=== PATIENT | female | born 1975 | race Caucasian/White ===

== ENCOUNTER 2019-01-27 08:41 | Emergency (ER) | payer MEDICARE, MEDICAID ==
[~2019-01-27] VITALS: Ht 157.4 cm; Wt 47.6 kg
[2019-01-27 09:35] LABS: BASO % 0.3 % (0.0-1.0); EOS # 0.1 10*3/uL (0.0-0.4); EOS % 1.1 % (1.0-4.0); HEMATOCRIT 42.2 % (37.0-47.0); LYMPH # 3.5 10*3/uL (1.3-4.4); LYMPH % 30.9 % (27.0-41.0); MEAN CELL VOLUME 105.5 fl (81.0-99.0); MEAN CORPUSCULAR HGB CONC 33.2 g/dl (33.0-37.0); MEAN PLATELET VOLUME 10.8 fl (9.6-12.3); MONO # 0.8 10*3/uL (0.1-1.0); MONO % 7.3 % (3.0-9.0); NEUT # 6.8 10*3/uL (2.3-7.9); NEUT % 60.1 % (47.0-73.0); PLATELET COUNT AUTOMATED 277 10*3/uL (130-400); RED CELL DISTRI WIDTH 14.8 % (0-14.5); WHITE BLOOD COUNT 11.3 10*3/uL (4.8-10.8)
[2019-01-27 09:49] LABS: ALKALINE PHOSPHATASE 96 U/L (45-117); BUN 5 mg/dl (7-24); CHLORIDE 107 mmol/L (98-107); CREATININE 0.76 mg/dL (0.55-1.02); POTASSIUM 3.2 mmol/L (3.5-5.1); SGOT/AST 13 IU/L (3-35); SGPT/ALT 20 U/L (12-78); SODIUM 142 mmol/L (136-145); TOTAL PROTEIN 6.2 gm/dL (6.4-8.2)
[2019-01-27] MEDS ORDERED: AMOXICILLIN500 M2 PO (10:48)
[2019-01-27] MEDS ORDERED: DIFLUCAN150 MG PO (10:48)
== END 2019-01-27 10:56 | disposition home or self-care (01) ==
LOC: ED 08:41
PROVIDERS: Hospitalist
DX: J32.9 Chronic sinusitis, unspecified (principal); F17.200 Nicotine dependence, unspecified, uncomplicated; Z88.1 Allergy status to other antibiotic agents; Z88.2 Allergy status to sulfonamides; Z88.8 Allergy status to other drugs, medicaments and biological substances

== ENCOUNTER 2019-02-13 12:28 | Emergency (ER) | payer MEDICARE, MEDICAID ==
[~2019-02-13] VITALS: Ht 157.4 cm; Wt 49.9 kg
[~2019-02-13 12:28] MED LIST: AMOXICILLIN500 M2 PO; DIFLUCAN150 MG PO
[2019-02-13] MEDS ORDERED: METHOCARBAMOL500 M1 PO (14:46)
[2019-02-13] MEDS ORDERED: NAPROSYN500 MG PO (14:46)
== END 2019-02-13 14:55 | disposition home or self-care (01) ==
LOC: ED 12:28
DX: S80.02XA Contusion of left knee, initial encounter (principal); S00.81XA Abrasion of other part of head, initial encounter; F17.200 Nicotine dependence, unspecified, uncomplicated; Z88.1 Allergy status to other antibiotic agents; Z88.8 Allergy status to other drugs, medicaments and biological substances; W10.8XXA Fall (on) (from) other stairs and steps, initial encounter; Y93.89 Activity, other specified; Y92.89 Other specified places as the place of occurrence of the external cause; Y99.9 Unspecified external cause status

== ENCOUNTER 2019-02-15 20:12 | Emergency (ER) | payer MEDICARE ==
[~2019-02-15] VITALS: Ht 157.4 cm; Wt 49.9 kg
[~2019-02-15 20:12] MED LIST changes: +METHOCARBAMOL500 M1 PO; +NAPROSYN500 MG PO
== END 2019-02-15 23:46 | disposition home or self-care (01) ==
LOC: ED 20:12
DX: S06.0X0A Concussion without loss of consciousness, initial encounter (principal); S16.1XXA Strain of muscle, fascia and tendon at neck level, initial encounter; S00.03XA Contusion of scalp, initial encounter; R11.2 Nausea with vomiting, unspecified; M54.6 Pain in thoracic spine; R10.9 Unspecified abdominal pain; F17.200 Nicotine dependence, unspecified, uncomplicated; Z88.1 Allergy status to other antibiotic agents; Z88.2 Allergy status to sulfonamides; Z88.8 Allergy status to other drugs, medicaments and biological substances; Z79.2 Long term (current) use of antibiotics; Z79.899 Other long term (current) drug therapy; W10.8XXA Fall (on) (from) other stairs and steps, initial encounter; Y93.89 Activity, other specified; Y92.89 Other specified places as the place of occurrence of the external cause; Y99.8 Other external cause status